=== PATIENT | female | born 1995 | race Caucasian/White ===

== ENCOUNTER 2017-02-22 14:15 | Emergency (ER) | payer MEDICAID, OTHER ==
[~2017-02-22] VITALS: Ht 152.4 cm; Wt 64.0 kg
[2017-02-22 14:19] VITALS: Ht 152.4 cm; Wt 64.0 kg
[2017-02-22] MEDS ORDERED: ACET500C5 PO (15:23)
--- NOTE | 2017-02-22 15:28 | ERD ---
ER Documentation Chief Complaint Date/Time DATE: 02/22/17 TIME: 15:25 Chief Complaint PT with lump to wrist wrist x 2 months, painfull. HPI Patient is a 21-year-old female with no past medical history who presents to the ED with a lump on her left wrist 2 months. She states that she has had this in the past before. She states that she applied pressure in the past and it was resolved however she hit her hand against a wall a few months ago and developed the same cyst again. She denies fever or chills. She denies headache or dizziness. States that it is nontender to touch but does have tenderness with flexion and extension. ROS All systems reviewed and are negative except as per history of present illness. Medications Home Meds Active Scripts Acetaminophen* (Tylophen*) 500 Mg Capsule, 1 CAP PO Q6H Y for PAIN AND OR ELEVATED TEMP, #20 CAP Prov:BELLE MARIA PA-C 02/22/17 PMhx/Soc History of Surgery: No Anesthesia Reaction: No Hx Neurological Disorder: No Hx Respiratory Disorders: No Hx Cardiac Disorders: No Hx Psychiatric Problems: No Hx Miscellaneous Medical Probl: No Hx Alcohol Use: No Hx Substance Use: No Hx Tobacco Use: No Smoking Status: Never smoker Physical Exam Vitals Vital Signs Date Time Temp Pulse Resp B/P Pulse Ox O2 Delivery O2 Flow Rate FiO2 02/22/17 14:19 98.5 73 18 112/68 95 Physical Exam GENERAL: Well-developed, well-nourished female. Appears in no acute distress. HEAD: Normocephalic, atraumatic. EYES: Pupils are equally reactive bilaterally. EOMs grossly intact. No conjunctival erythema. ENT: Moist mucous membranes. No uvula deviation. No kissing tonsils. No exudates. NECK: Supple. No lymphadenopathy or thyromegaly. No meningismus. negative kernig. negative brudinski. LUNG: Clear to auscultation bilaterally. No rhonchi, wheezing, rales or coarse breath sounds. HEART: Regular rate and rhythm. No murmurs, rubs or gallops. Extremities: Equal pulses bilaterally. No peripheral clubbing, cyanosis or edema. No unilateral leg swelling. 4 cm mobile fluid filled ganglion cyst on left carpal. no snuffbox tenderness. No step-offs or deformities. No open wounds or lacerations. No erythema. NEUROLOGIC: Alert and oriented. Moving all four extremities. 5/5 strength in all extremities. Normal speech. Steady gait. SKIN: Normal color. Warm and dry. No rashes or lesions. Capillary refill < 2 seconds Procedures/[facility] ER COURSE: I kept the patient and/or family informed of laboratory and diagnostic imaging results throughout the emergency room course. MEDICAL DECISION MAKING: This is a 21-year-old female who presents with cyst on her left wrist 2 months. Vital signs were reviewed. Patient is afebrile. Patient is not hypoxic. Patient is nontoxic or ill-appearing. Patient has a ganglion cyst. Low suspicion for dislocation, fracture, septic joint, compartment syndrome, osteomyelitis, cellulitis, avascular necrosis, neurological injury, vascular injury, tendon laceration. DISCHARGE: At this time, patient is stable for discharge and outpatient management with no new complaints during the ER course. Patient was sent home with Velcro wrist splint and to follow-up with her primary care provider for further evaluation. Patient also given tylenol. Patient will be discharged home with instructions to recheck for new or worsening symptoms such as fever, nausea, weakness, LOC and to follow up with primary care in the next 1-2 days. Patient was advised to return to the ER for any new or worsening symptoms. Plan was discussed and patient and/or family understands and agrees. Home instructions were given. Departure Diagnosis: Primary Impression: Ganglion cyst Condition: Stable Patient Instructions: Ganglion Cyst: Hand, Treating Ganglions Ref[facility]: [facility] Usted se larsen hecho un examen mdico de control que le indica que no est en jesse condicin que requiera tratamiento urgente en el Departamento de Emergencia. Un estudio ms profundo y el tratamiento de bailon condicin pueden esperar sin ningn riesgo hasta que usted sea atendida/o en el consultorio de bailon mdico o jesse cl yanick. Es responsabilidad suya arreglar jesse jennifer para el seguimiento del pete. MANEJO DE CONDICIONES NO URGENTES EN EL FUTURO 1) Si usted tiene un mdico de atencin primaria: Usted debera llamar a bailon mdico de atencin primaria antes de venir al departamento de emergencia. Despus de las horas de consultorio, bailon doctor o bailon asociado/a est disponible por telfono. El mdico o enfermero de bryson en el servicio telefnico puede asesorarle por sharmaine medio para atender el problema, o pete contrario se puede programar jesse jennifer. 2) Si usted no tiene un mdico de atencin primaria: Llame al mdico o clnica de referencia que aparece abajo angelita las horas de consultorio para hacer jesse jennifer para que le vean. CLINICAS: [place] [id number] [phone] [facility] [phone] [facility] [phone] [place] [address] [phone] [place] [address] [phone] [facility]. [phone] [address] [facility] () Emily se larsen hecho un examen mdico de control que le indica que no est en jesse condicin que requiera tratamiento urgente en el Departamento de Emergencia. Un estudio ms profundo y el tratamiento de bailon condicin pueden esperar sin ningn riesgo hasta que usted sea atendida/o en el consultorio de bailon mdico o jesse cl yanick. Es responsabilidad suya arreglar jesse jennifer para el seguimiento del pete. MANEJO DE CONDICIONES NO URGENTES EN EL FUTURO 1) Si usted tiene un mdico de atencin primaria: Usted debera llamar a bailon mdico de atencin primaria antes de venir al departamento de emergencia. Despus de las horas de consultorio, bailon doctor o bailon asociado/a est disponible por telfono. El mdico o enfermero de bryson en el servicio telefnico puede asesorarle por sharmaine medio para atender el problema, o pete contrario se puede programar jesse jennifer. 2) Si usted no tiene un mdico de atencin primaria: Llame al mdico o condado institucions de referencia que aparece abajo angelita las horas de consultorio para hacer jesse jennifer para que le vean. SI USTED NO PUEDE PAGAR PARA HUBERT UN MEDICO puede ir a: [facility] [address] [place] [address] [facility] [address] [place] [address] [facility] [address] [place] [address] [facility]A [facility] [address] [place], [place] [id number] Additional Instructions: Llame al doctor MAANA y henry jesse JENNIFER PARA DENTRO DE 1-2 [place].Dgale a la secretaria que nosotros le instruimos hacer esta jennifer.Avise o llame si bailon condicin se empeora antes de la jennifer. Regresa aqui si peor o no mejor. BELLE MARIA PA-C Feb 22, 2017 15:27
== END 2017-02-22 16:04 | disposition home or self-care (01) ==
LOC: FTE 14:15
DX: M67.432 Ganglion, left wrist (principal)
CPT/HCPCS: 29125; Z7502